=== PATIENT | female | born 1940 | race Caucasian/White ===

== ENCOUNTER 2017-04-28 18:09 | Emergency (ER) | payer MEDICARE, BC ==
[2017-04-28 19:06] VITALS: BP 140/80
[2017-04-28] MEDS ORDERED: ALPRAZolam 0.5 MG Tab PO ONE (19:19)
--- NOTE | 2017-04-28 19:23 | EDM.PDOC ---
ED HPI GENERAL MEDICAL PROBLEM - General Chief Complaint: Headache Stated Complaint: HEADACHE, [id number] Time Seen by Provider: 04/28/17 19:20 Source of Information: Reports: Patient History Limitations: Reports: No Limitations - History of Present Illness INITIAL COMMENTS - FREE TEXT/NARRATIVE: long h/o problem and been Tx with xanax by Dr Orozco who retired and been out of Rx. Headache Pain Score (Numeric/FACES): 6 - Related Data Allergies Allergy/AdvReac Type Severity Reaction Status Date / Time amitriptyline Allergy Abdominal Verified 10/07/16 20:25 Cramps amoxicillin [Amoxicillin] Allergy Diarrhea Verified 10/07/16 20:25 cefadroxil [Cefadroxil] Allergy Cannot Verified 10/07/16 20:25 Remember cefadroxil hydrate Allergy Anaphylactic Verified 10/07/16 20:25 [From Duricef] Shock Cephalosporins Allergy Cannot Verified 10/07/16 20:25 Remember ciprofloxacin Allergy Abdominal Verified 10/07/16 20:25 Pain clindamycin Allergy Diarrhea Verified 10/07/16 20:25 cyclobenzaprine Allergy Cannot Verified 10/07/16 20:25 [Cyclobenzaprine] Remember diazepam [From Valium] Allergy Abdominal Verified 10/07/16 20:25 Pain doxycycline Allergy Diarrhea Verified 10/07/16 20:25 hydrocodone Allergy Cannot Verified 10/07/16 20:25 Remember latex Allergy Rash Verified 10/07/16 20:25 meperidine HCl [From Demerol] Allergy Cannot Verified 10/07/16 20:25 Remember mirtazapine Allergy Cannot Verified 10/07/16 20:25 Remember oxycodone [Oxycodone] Allergy Cannot Verified 10/07/16 20:25 Remember Penicillins Allergy Anaphylactic Verified 10/07/16 20:25 Shock tramadol Allergy Cannot Verified 10/07/16 20:25 Remember venlafaxine Allergy Cannot Verified 10/07/16 20:25 Remember Home Meds: Home Meds Methimazole [Tapazole] 10 mg PO DAILY 02/03/14 [History] Metoprolol Tartrate [Lopressor] 12.5 mg PO Q12HR 02/03/14 [History] Sertraline [Zoloft] 150 mg PO DAILY 02/03/14 [History] Omeprazole [Prilosec] 1 tab PO DAILY 03/13/16 [History] hydrOXYzine Pamoate [Hydroxyzine Pamoate] 1 cap PO BID PRN 10/07/16 [History] Past Medical History HEENT History: Reports: Impaired Vision Cardiovascular History: Reports: Hypertension Respiratory History: Reports: COPD, Pneumonia, Recurrent Gastrointestinal History: Reports: GERD Genitourinary History: Reports: Other (See Below) Other Genitourinary History: botox injection peripheral neuropathy. 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 right wrist Neurological History: Reports: Neuropathy, Peripheral Psychiatric History: Reports: Anxiety, Depression, Panic Attack Endocrine/Metabolic History: Reports: Other (See Below) Other Endocrine/Metabolic History: PT STATES THYROID PROBLEMS Hematologic History: Reports: None Immunologic History: Reports: None Oncologic (Cancer) History: Reports: None Dermatologic History: Reports: None - Infectious Disease History Infectious Disease History: Reports: None - Past Surgical History Head Surgeries/Procedures: Reports: None Social & Family History - Family History Family Medical History: Noncontributory - Tobacco Use Smoking Status *Q: Current Every Day Smoker Years of Tobacco use: 50 Packs/Tins Daily: 0.2 Used Tobacco, but Quit: No Second Hand Smoke Exposure: No - Caffeine Use Caffeine Use: Reports: None - Alcohol Use Days Per Week of Alcohol Use: 0 - Recreational Drug Use Recreational Drug Use: No ED ROS GENERAL - Review of Systems Review Of Systems: ROS reveals no pertinent complaints other than HPI. - Physical Exam Exam: See Below Exam Limited By: No Limitations General Appearance: Alert, WD/WN, Mild Distress, Other (tearful) Eye Exam: Bilateral Eye: PERRL (pupils ER @ 4mm) Ears: Hearing Grossly Normal Throat/Mouth: Normal Voice, No Airway Compromise Head Exam: Atraumatic Neck: Non-Tender, Full Range of Motion Respiratory/Chest: No Respiratory Distress Cardiovascular: Regular Rate, Rhythm GI/Abdominal: Soft, Non-Tender Neuro Exam (Abbreviated): Alert, Oriented, Normal Cognition, Normal Gait, No Motor/Sensory Deficits Psychiatric: Tearful Skin Exam: Warm, Dry Course - Vital Signs Last Recorded V/S: Last Vital Signs Temp 35.7 C 04/28/17 19:05 Pulse 72 04/28/17 19:05 Resp 16 04/28/17 19:05 BP 140/80 05/28/17 19:05 Pulse Ox 98 04/28/17 19:05 - Orders/Labs/Meds Meds: Medications Discontinued Medications Generic Name Dose Route Start Last Admin Trade Name Freq PRN Reason Stop Dose Admin Alprazolam 0.5 mg 04/28/17 19:19 Xanax PO 04/28/17 19:20 ONETIME ONE Departure - Departure Time of Disposition: 19:22 Disposition: Home, Self-Care 01 Condition: good Clinical Impression: Migraine - Discharge Information Instructions: Recurrent Migraine Headache, [id number] Forms: ED Department Discharge Additional Instructions: 1) rest 2) follow up at clinic or recheck as needed rx given; xanax 0.5mg hs prn x 20
== END 2017-04-28 19:36 | disposition home or self-care (01) ==
LOC: DL.ED 18:09
DX: G43.909 Migraine, unspecified, not intractable, without status migrainosus (principal); I10 Essential (primary) hypertension; J44.9 Chronic obstructive pulmonary disease, unspecified; F41.9 Anxiety disorder, unspecified; F32.9 Major depressive disorder, single episode, unspecified; F17.210 Nicotine dependence, cigarettes, uncomplicated; Z88.1 Allergy status to other antibiotic agents; Z88.8 Allergy status to other drugs, medicaments and biological substances; Z88.0 Allergy status to penicillin; Z88.6 Allergy status to analgesic agent; Z79.899 Other long term (current) drug therapy; Z87.01 Personal history of pneumonia (recurrent); K21.9 Gastro-esophageal reflux disease without esophagitis; Z91.040 Latex allergy status
CPT/HCPCS: 99283; A9270

== ENCOUNTER 2017-06-05 21:06 | Emergency (ER) | payer MEDICARE, BC ==
[2017-06-05 22:08] VITALS: BP 155/91
[2017-06-05] MEDS ORDERED: Ketorolac 30 MG/ML SDV IVPUSH ONE (22:14)
[2017-06-05] MEDS ORDERED: Sodium Chloride 0.9% 500 ML IV SCH (22:15)
--- NOTE | 2017-06-05 22:20 | EDM.PDOC ---
ED HPI GENERAL MEDICAL PROBLEM - General Chief Complaint: Headache Stated Complaint: HEADACHE Time Seen by Provider: 06/05/17 22:10 Source of Information: Reports: Patient History Limitations: Reports: No Limitations - History of Present Illness INITIAL COMMENTS - FREE TEXT/NARRATIVE: This 77 yo female patient reports to the ED with a headache that started after a brief episode of vertigo at about 1700 tonight. The patient has taken Tylenol but her pain continues to be a 6/10. Onset: Today Onset Date: 06/05/17 Onset Time: 17:00 Duration: Constant Location: Reports: Head Quality: Reports: Ache Severity: Moderate Improves with: Reports: None Worsens with: Reports: None Context: Reports: Activity Associated Symptoms: Reports: No Other Symptoms Treatments [facility]: Reports: Acetaminophen Frontal Headache Pain Score (Numeric/FACES): 6 - Related Data Allergies Allergy/AdvReac Type Severity Reaction Status Date / Time amitriptyline Allergy Abdominal Verified 10/07/16 20:25 Cramps amoxicillin [Amoxicillin] Allergy Diarrhea Verified 10/07/16 20:25 cefadroxil [Cefadroxil] Allergy Cannot Verified 10/07/16 20:25 Remember cefadroxil hydrate Allergy Anaphylactic Verified 10/07/16 20:25 [From Duricef] Shock Cephalosporins Allergy Cannot Verified 10/07/16 20:25 Remember ciprofloxacin Allergy Abdominal Verified 10/07/16 20:25 Pain clindamycin Allergy Diarrhea Verified 10/07/16 20:25 cyclobenzaprine Allergy Cannot Verified 10/07/16 20:25 [Cyclobenzaprine] Remember diazepam [From Valium] Allergy Abdominal Verified 10/07/16 20:25 Pain doxycycline Allergy Diarrhea Verified 10/07/16 20:25 hydrocodone Allergy Cannot Verified 10/07/16 20:25 Remember latex Allergy Rash Verified 10/07/16 20:25 meperidine HCl [From Demerol] Allergy Cannot Verified 10/07/16 20:25 Remember mirtazapine Allergy Cannot Verified 10/07/16 20:25 Remember oxycodone [Oxycodone] Allergy Cannot Verified 10/07/16 20:25 Remember Penicillins Allergy Anaphylactic Verified 10/07/16 20:25 Shock tramadol Allergy Cannot Verified 10/07/16 20:25 Remember venlafaxine Allergy Cannot Verified 10/07/16 20:25 Remember Home Meds: Home Meds Methimazole [Tapazole] 10 mg PO DAILY 02/03/14 [History] Metoprolol Tartrate [Lopressor] 12.5 mg PO Q12HR 02/03/14 [History] Sertraline [Zoloft] 150 mg PO DAILY 02/03/14 [History] Omeprazole [Prilosec] 1 tab PO DAILY 03/13/16 [History] hydrOXYzine Pamoate [Hydroxyzine Pamoate] 1 cap PO BID PRN 10/07/16 [History] Past Medical History HEENT History: Reports: Impaired Vision Cardiovascular History: Reports: Hypertension Respiratory History: Reports: COPD, Pneumonia, Recurrent Gastrointestinal History: Reports: GERD Genitourinary History: Reports: Other (See Below) Other Genitourinary History: botox injection peripheral neuropathy. 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 right wrist Neurological History: Reports: Neuropathy, Peripheral Psychiatric History: Reports: Anxiety, Depression, Panic Attack Endocrine/Metabolic History: Reports: Other (See Below) Other Endocrine/Metabolic History: PT STATES THYROID PROBLEMS Hematologic History: Reports: None Immunologic History: Reports: None Oncologic (Cancer) History: Reports: None Dermatologic History: Reports: None - Infectious Disease History Infectious Disease History: Reports: None - Past Surgical History Head Surgeries/Procedures: Reports: None Social & Family History - Family History Family Medical History: Noncontributory - Tobacco Use Smoking Status *Q: Current Every Day Smoker Years of Tobacco use: 50 Packs/Tins Daily: 0.2 Used Tobacco, but Quit: No Second Hand Smoke Exposure: No - Caffeine Use Caffeine Use: Reports: None - Alcohol Use Days Per Week of Alcohol Use: 0 - Recreational Drug Use Recreational Drug Use: No ED ROS GENERAL - Review of Systems Review Of Systems: ROS reveals no pertinent complaints other than HPI. - Physical Exam Exam: See Below Exam Limited By: No Limitations General Appearance: Alert, WD/WN, Mild Distress Eye Exam: Bilateral Eye: EOMI, Normal Inspection, PERRL Ears: Normal External Exam, Normal Canal, Hearing Grossly Normal, Normal TMs Nose: Normal Inspection, Normal Mucosa, No Blood Throat/Mouth: Normal Inspection, Normal Lips, Normal Teeth, Normal Gums, Normal Oropharynx, Normal Voice, No Airway Compromise Head Exam: Atraumatic, Normocephalic Neck: Normal Inspection, Supple, Non-Tender, Full Range of Motion Respiratory/Chest: No Respiratory Distress, Lungs Clear, Normal Breath Sounds, No Accessory Muscle Use, Chest Non-Tender Cardiovascular: Normal Peripheral Pulses, Regular Rate, Rhythm, No Edema, No Gallop, No JVD, No Murmur, No Rub GI/Abdominal: Normal Bowel Sounds, Soft, Non-Tender, No Organomegaly, No Distention, No Abnormal Bruit, No Mass (Female) Exam: Deferred Rectal (Female) Exam: Deferred Neuro Exam (Abbreviated): Alert, Oriented, CN II-XII Intact, Normal Cognition, Normal Gait, Normal Reflexes, No Motor/Sensory Deficits Back Exam: Normal Inspection, Full Range of Motion, NT Psychiatric: Normal Affect, Normal Mood Skin Exam: Warm, Dry, Intact, Normal Color, No Rash Course - Vital Signs Last Recorded V/S: Last Vital Signs Temp 37.0 C 06/05/17 22:07 Pulse 65 06/05/17 22:07 Resp 18 06/05/17 22:07 BP 155/91 H 06/05/17 22:07 Pulse Ox 96 06/05/17 22:07 - Orders/Labs/Meds Orders: Active Orders 24 hr Category Date Time Status Sodium Chloride 0.9% [Normal Saline] 500 ml Med 06/05/17 22:15 Active IV .BOLUS Medication Orders Sodium Chloride (Normal Saline) 500 mls @ 999 mls/hr IV .BOLUS SARAHI Last Admin: 06/05/17 22:25 Dose: 999 mls/hr Meds: Medications Generic Name Dose Route Start Last Admin Trade Name Freq PRN Reason Stop Dose Admin Sodium Chloride 500 mls @ 999 mls/hr 06/05/17 22:15 06/05/17 22:25 Normal Saline IV 999 mls/hr .BOLUS SARAHI Administration Discontinued Medications Generic Name Dose Route Start Last Admin Trade Name Freq PRN Reason Stop Dose Admin Ketorolac Tromethamine 30 mg 06/05/17 22:14 06/05/17 22:25 Toradol IVPUSH 06/05/17 22:15 30 mg ONETIME ONE Administration Departure - Departure Time of Disposition: 22:59 Disposition: Home, Self-Care 01 Condition: Fair Clinical Impression: Headache Qualifiers: Headache type: unspecified Headache chronicity pattern: episodic headache Intractability: not intractable Qualified Code(s): R51 - Headache - Discharge Information Instructions: General Headache Without Cause, [id number] Forms: ED Department Discharge Care Plan Goals: The patient was advised of the examination results during the visit. The patient was given IV fluids and IV Toradol while in the ED. The patient was encouraged to take her Xanax when she gets home. If the patient has any additional symptoms or concerns, the patient should follow-up with her primary care facility or return to the ED. - My Orders Last 24 Hours: My Active Orders 06/05/17 22:15 Sodium Chloride 0.9% [Normal Saline] 500 ml IV .BOLUS - Assessment/Plan Last 24 Hours: My Active Orders 06/05/17 22:15 Sodium Chloride 0.9% [Normal Saline] 500 ml IV .BOLUS
== END 2017-06-05 23:15 | disposition home or self-care (01) ==
LOC: DL.ED 21:06
DX: R51 Headache (principal); H54.7 Unspecified visual loss; I10 Essential (primary) hypertension; J44.9 Chronic obstructive pulmonary disease, unspecified; F41.9 Anxiety disorder, unspecified; F32.9 Major depressive disorder, single episode, unspecified; K21.9 Gastro-esophageal reflux disease without esophagitis; G62.9 Polyneuropathy, unspecified; F17.210 Nicotine dependence, cigarettes, uncomplicated; Z88.8 Allergy status to other drugs, medicaments and biological substances; Z88.1 Allergy status to other antibiotic agents; Z79.899 Other long term (current) drug therapy; Z87.01 Personal history of pneumonia (recurrent)
CPT/HCPCS: 99284; J1885; J7040; 96374

== ENCOUNTER 2017-08-27 19:43 | Emergency (ER) | payer MEDICARE, BC ==
[2017-08-27 19:57] VITALS: BP 152/79
--- NOTE | 2017-08-27 21:37 | EDM.PDOC ---
ED HPI GENERAL MEDICAL PROBLEM - General Chief Complaint: Head Injury Stated Complaint: FELL BACKWARDS IS BLEEDING ON NECK/HEAD, [id number] Time Seen by Provider: 08/27/17 20:00 Source of Information: Reports: Patient History Limitations: Reports: No Limitations - History of Present Illness INITIAL COMMENTS - FREE TEXT/NARRATIVE: c/o headache. Unwitnessed fall at home, fell back and hit wooden chair. Denies loss of consciousness, States able to get back up off of floor and sit up in chair, brought to ED when huspband home. Patient sustained numerous falls in past, Also c/o general non specific pain everywhere. Onset: Today Location: Reports: Head, Neck Posterior Head Pain Score (Numeric/FACES): 6 - Related Data Allergies Allergy/AdvReac Type Severity Reaction Status Date / Time amitriptyline Allergy Abdominal Verified 08/27/17 19:52 Cramps amoxicillin [Amoxicillin] Allergy Diarrhea Verified 08/27/17 19:52 cefadroxil [Cefadroxil] Allergy Cannot Verified 08/27/17 19:52 Remember cefadroxil hydrate Allergy Anaphylactic Verified 08/27/17 19:52 [From Duricef] Shock Cephalosporins Allergy Cannot Verified 08/27/17 19:52 Remember ciprofloxacin Allergy Abdominal Verified 08/27/17 19:52 Pain clindamycin Allergy Diarrhea Verified 08/27/17 19:52 cyclobenzaprine Allergy Cannot Verified 08/27/17 19:52 [Cyclobenzaprine] Remember diazepam [From Valium] Allergy Abdominal Verified 08/27/17 19:52 Pain doxycycline Allergy Diarrhea Verified 08/27/17 19:52 hydrocodone Allergy Cannot Verified 08/27/17 19:52 Remember latex Allergy Rash Verified 08/27/17 19:52 meperidine HCl [From Demerol] Allergy Cannot Verified 08/27/17 19:52 Remember mirtazapine Allergy Cannot Verified 08/27/17 19:52 Remember oxycodone [Oxycodone] Allergy Cannot Verified 08/27/17 19:52 Remember Penicillins Allergy Anaphylactic Verified 08/27/17 19:52 Shock tramadol Allergy Cannot Verified 08/27/17 19:52 Remember venlafaxine Allergy Cannot Verified 08/27/17 19:52 Remember Home Meds: Home Meds Metoprolol Tartrate [Lopressor] 12.5 mg PO Q12HR 02/03/14 [History] Sertraline [Zoloft] 150 mg PO DAILY 02/03/14 [History] Omeprazole [Prilosec] 1 tab PO DAILY 03/13/16 [History] ALPRAZolam [Xanax] 0.5 tab PO BID 08/27/17 [History] Past Medical History HEENT History: Reports: Impaired Vision Cardiovascular History: Reports: Hypertension Respiratory History: Reports: COPD, Pneumonia, Recurrent Gastrointestinal History: Reports: GERD Genitourinary History: Reports: Other (See Below) Other Genitourinary History: botox injection peripheral neuropathy. 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 right wrist Neurological History: Reports: Neuropathy, Peripheral Psychiatric History: Reports: Anxiety, Depression, Panic Attack Endocrine/Metabolic History: Reports: Other (See Below) Other Endocrine/Metabolic History: PT STATES THYROID PROBLEMS Hematologic History: Reports: None Immunologic History: Reports: None Oncologic (Cancer) History: Reports: None Dermatologic History: Reports: None - Infectious Disease History Infectious Disease History: Reports: None - Past Surgical History Head Surgeries/Procedures: Reports: None Social & Family History - Family History Family Medical History: Noncontributory - Tobacco Use Smoking Status *Q: Current Every Day Smoker Years of Tobacco use: 60 Packs/Tins Daily: 0.5 Used Tobacco, but Quit: No Second Hand Smoke Exposure: No - Caffeine Use Caffeine Use: Reports: Soda - Alcohol Use Days Per Week of Alcohol Use: 0 - Recreational Drug Use Recreational Drug Use: No ED ROS GENERAL - Review of Systems Review Of Systems: ROS reveals no pertinent complaints other than HPI. ED EXAM, HEAD INJURY - Physical Exam Exam: See Below Exam Limited By: No Limitations General Appearance: Alert, Mild Distress Head: Scalp Lacerations (upper occipitalsmall hematoma with .5cm abrasion no active bleding) Nexus Criteria: Posterior, Midline Cervical Tenderness. No: Focal Neurological Deficit Eyes: Bilateral Eye: EOMI, PERRL Ears: Normal External Exam Nose: Normal Inspection, Normal Mucousa Throat/Mouth: Normal Inspection, Normal Lips, Normal Teeth Neck: Non-Tender, Full Range of Motion Respiratory: No Respiratory Distress, Lungs Clear, Normal Breath Sounds Cardiovascular: Normal Peripheral Pulses, Regular Rate, Rhythm GI/Abdominal Exam: Normal Bowel Sounds, Soft Back Exam: Normal Inspection. No: CVA Tenderness (L), CVA Tenderness (R) Extremities: Normal Inspection, Normal Range of Motion Neurologic: Oriented x 3, Motor Weakness (general) Skin: Warm/Dry, Pallor. No: Ecchymosis - [place] Coma Score Best Eye Response (Lucrecia): (4) Open Spontaneously Best Verbal Response ([place]): (5) Oriented Best Motor Response ([place]): (6) Obeys Commands Lucrecia Total: 15 Course - Vital Signs Last Recorded V/S: Last Vital Signs Temp 97.7 F 08/27/17 19:55 Pulse 73 08/27/17 19:55 Resp 20 08/27/17 19:55 BP 152/79 H 08/27/17 19:55 Pulse Ox 97 08/27/17 19:55 - Orders/Labs/Meds Meds: Medications Discontinued Medications Generic Name Dose Route Start Last Admin Trade Name Levon PRN Reason Stop Dose Admin Acetaminophen 650 mg 08/27/17 22:05 08/27/17 22:11 Tylenol PO 08/27/17 22:06 650 mg NOW ONE Administration Departure - Departure Time of Disposition: 22:05 Disposition: Home, Self-Care 01 Condition: Fair Clinical Impression: Fall at home Qualifiers: Encounter type: subsequent encounter Qualified Code(s): W19.XXXD - Unspecified fall, subsequent encounter Headache Qualifiers: Headache type: unspecified Headache chronicity pattern: episodic headache Intractability: not intractable Qualified Code(s): R51 - Headache - Discharge Information Instructions: Head Injury, Adult, [id number] Referrals: PCP,None [Primary Care Provider] - Forms: ED Department Discharge Additional Instructions: tylenol 650mg every 4 hours as needed head injury instructions ice to back of head follow up in clinic later this week urgent follow up if any change in status
[2017-08-27] MEDS ORDERED: Acetaminophen 325 MG Tab PO ONE (22:05)
== END 2017-08-27 22:25 | disposition home or self-care (01) ==
LOC: DL.ED 19:43
DX: S01.01XA Laceration without foreign body of scalp, initial encounter (principal); I10 Essential (primary) hypertension; J44.9 Chronic obstructive pulmonary disease, unspecified; K21.9 Gastro-esophageal reflux disease without esophagitis; F41.9 Anxiety disorder, unspecified; F32.9 Major depressive disorder, single episode, unspecified; F17.210 Nicotine dependence, cigarettes, uncomplicated; Z88.1 Allergy status to other antibiotic agents; Z88.8 Allergy status to other drugs, medicaments and biological substances; Z88.0 Allergy status to penicillin; Z87.01 Personal history of pneumonia (recurrent); Z88.6 Allergy status to analgesic agent; Z79.899 Other long term (current) drug therapy; W18.00XA Striking against unspecified object with subsequent fall, initial encounter; Z91.81 History of falling
CPT/HCPCS: 70450; 72125; 99283; A9270

== ENCOUNTER 2017-09-29 19:26 | Emergency (ER) | payer MEDICARE, BC ==
[2017-09-29 19:37] VITALS: BP 165/91
--- NOTE | 2017-09-29 19:45 | EDM.PDOC ---
ED HPI GENERAL MEDICAL PROBLEM - General Chief Complaint: Abdominal Pain Stated Complaint: GENERAL Time Seen by Provider: 09/29/17 19:42 Source of Information: Reports: Patient History Limitations: Reports: No Limitations - History of Present Illness INITIAL COMMENTS - FREE TEXT/NARRATIVE: onset low abd pain this am, not going away, did have 2x large poop. Bilateral Lower Abdominal Pain Score (Numeric/FACES): 5 - Related Data Allergies Allergy/AdvReac Type Severity Reaction Status Date / Time amitriptyline Allergy Abdominal Verified 09/29/17 19:38 Cramps amoxicillin [Amoxicillin] Allergy Diarrhea Verified 09/29/17 19:38 cefadroxil [Cefadroxil] Allergy Cannot Verified 09/29/17 19:38 Remember cefadroxil hydrate Allergy Anaphylactic Verified 09/29/17 19:38 [From Duricef] Shock Cephalosporins Allergy Cannot Verified 09/29/17 19:38 Remember ciprofloxacin Allergy Abdominal Verified 09/29/17 19:38 Pain clindamycin Allergy Diarrhea Verified 09/29/17 19:38 cyclobenzaprine Allergy Cannot Verified 09/29/17 19:38 [Cyclobenzaprine] Remember diazepam [From Valium] Allergy Abdominal Verified 09/29/17 19:38 Pain doxycycline Allergy Diarrhea Verified 09/29/17 19:38 hydrocodone Allergy Cannot Verified 09/29/17 19:38 Remember latex Allergy Rash Verified 09/29/17 19:38 meperidine HCl [From Demerol] Allergy Cannot Verified 09/29/17 19:38 Remember mirtazapine Allergy Cannot Verified 09/29/17 19:38 Remember oxycodone [Oxycodone] Allergy Cannot Verified 09/29/17 19:38 Remember Penicillins Allergy Anaphylactic Verified 09/29/17 19:38 Shock tramadol Allergy Cannot Verified 09/29/17 19:38 Remember venlafaxine Allergy Cannot Verified 09/29/17 19:38 Remember Home Meds: Home Meds Metoprolol Tartrate [Lopressor] 12.5 mg PO Q12HR 02/03/14 [History] Sertraline [Zoloft] 150 mg PO DAILY 02/03/14 [History] Omeprazole [Prilosec] 1 tab PO DAILY 03/13/16 [History] ALPRAZolam [Xanax] 0.5 tab PO BID 08/27/17 [History] Past Medical History HEENT History: Reports: Impaired Vision Cardiovascular History: Reports: Hypertension Respiratory History: Reports: COPD, Pneumonia, Recurrent Gastrointestinal History: Reports: GERD Genitourinary History: Reports: Other (See Below) Other Genitourinary History: botox injection peripheral neuropathy. [employer] History: Reports: None, Musculoskeletal History: Reports: Fracture Other Musculoskeletal History: coccyx pain. right wrist Neurological History: Reports: Neuropathy, Peripheral Psychiatric History: Reports: Anxiety, Depression, Panic Attack Endocrine/Metabolic History: Reports: Other (See Below) Other Endocrine/Metabolic History: PT STATES THYROID PROBLEMS Hematologic History: Reports: None Immunologic History: Reports: None Oncologic (Cancer) History: Reports: None Dermatologic History: Reports: None - Infectious Disease History Infectious Disease History: Reports: None - Past Surgical History Head Surgeries/Procedures: Reports: None Social & Family History - Family History Family Medical History: Noncontributory - Tobacco Use Smoking Status *Q: Current Every Day Smoker Years of Tobacco use: 60 Packs/Tins Daily: 0.5 Used Tobacco, but Quit: No Second Hand Smoke Exposure: No - Caffeine Use Caffeine Use: Reports: Soda - Alcohol Use Days Per Week of Alcohol Use: 0 - Recreational Drug Use Recreational Drug Use: No ED ROS GENERAL - Review of Systems Review Of Systems: ROS reveals no pertinent complaints other than HPI. ED EXAM, GI/ABD - Physical Exam Exam: See Below Exam Limited By: No Limitations General Appearance: Alert, WD/WN, No Apparent Distress, Other (pleasant & chatty ) Ears: Hearing Grossly Normal Throat/Mouth: Normal Voice, No Airway Compromise Head: Atraumatic Neck: Non-Tender, Full Range of Motion Respiratory/Chest: No Respiratory Distress Cardiovascular: Regular Rate, Rhythm GI/Abdominal Exam: Soft, Tender, Other (minimal periumb disomcfort). No: Distended, Guarding, Rigid, Rebound Neurological: Alert, Oriented, Normal Cognition, Normal Gait, No Motor/Sensory Deficits Psychiatric: Normal Affect, Normal Mood Skin Exam: Warm, Dry, Normal Color Lymphatic: No Adenopathy Course - Vital Signs Last Recorded V/S: Last Vital Signs Temp 36.4 C 09/29/17 19:30 Pulse 87 09/29/17 19:30 Resp 16 09/29/17 19:30 BP 165/91 H 09/29/17 19:30 Pulse Ox 99 09/29/17 19:30 - Orders/Labs/Meds Orders: Active Orders 24 hr Category Date Time Status KUB [Abdomen 1V Flat] [CR] Urgent Exams 09/29/17 19:36 Taken Labs: Laboratory Tests 09/29/17 09/29/17 Range/Units 19:45 19:45 WBC 5.0 (5.0-10.0) 10^3/uL RBC 4.47 (4.2-5.4) 10^6/uL Hgb 12.7 (12.0-16.0) g/dL Hct 38.1 (37.0-47.0) % MCV 85.2 (80-100) fL MCH 28.4 (27.0-34.0) pg MCHC 33.3 (33.0-35.0) g/dL Plt Count 196 (150-450) 10^3/uL Neut % (Auto) 38.7 L (42.2-75.2) % Lymph % (Auto) 41.8 (20.5-50.1) % Davis % (Auto) 14.9 H (2-8) % Eos % (Auto) 3.6 H (1.0-3.0) % Baso % (Auto) 1.0 (0.0-1.0) % Sodium 143 (135-145) mmol/L Potassium 3.5 L (3.6-5.0) mmol/L Chloride 108 (101-111) mmol/L Carbon Dioxide 24.0 (21.0-31.0) mmol/L Anion Gap 14.5 BUN 14 (7-18) mg/dL Creatinine 0.7 (0.6-1.3) mg/dL Est Cr Clr Drug Dosing 66.75 mL/min Estimated GFR (MDRD) > 60 BUN/Creatinine Ratio 20.00 Glucose 93 (74-105) mg/dL Calcium 9.3 (8.4-10.2) mg/dl Total Bilirubin 0.7 (0.2-1.0) mg/dL AST 22 (10-42) IU/L ALT 14 (10-60) IU/L Alkaline Phosphatase 61 (42-121) IU/L Total Protein 6.4 L (6.7-8.2) g/dl Albumin 3.7 (3.2-5.5) g/dl Globulin 2.7 Albumin/Globulin Ratio 1.37 Amylase 40 (28-100) U/L Lipase 32 (22-51) U/L - Re-Assessments/Exams Free Text/Narrative Re-Assessment/Exam: 09/29/17 20:48 results discussed with pt. Departure - Departure Time of Disposition: 20:48 Disposition: Home, Self-Care 01 Condition: Good Clinical Impression: Constipation by delayed colonic transit Abdominal pain Qualifiers: Abdominal location: lower abdomen, unspecified Qualified Code(s): R10.30 - Lower abdominal pain, unspecified - Discharge Information Instructions: Constipation, Adult, [id number] Forms: ED Department Discharge Additional Instructions: 1) avoid fatty foods and solid foods next 3 to 4 days 2) have prune juice rx togo; [facility] - My Orders Last 24 Hours: My Active Orders 09/29/17 19:36 KUB [Abdomen 1V Flat] [CR] Urgent - Assessment/Plan Last 24 Hours: My Active Orders 09/29/17 19:36 KUB [Abdomen 1V Flat] [CR] Urgent
[2017-09-29 20:24] LABS: CHLORIDE,CL 108 mmol/L (101-111); SODIUM,NA 143 mmol/L (135-145)
[2017-09-29] MEDS ORDERED: Magnesium Citrate Solution 296 ML Bottle ONE (20:49)
== END 2017-09-29 20:55 | disposition home or self-care (01) ==
LOC: DL.ED 19:26
DX: K59.01 Slow transit constipation (principal); F17.210 Nicotine dependence, cigarettes, uncomplicated; I10 Essential (primary) hypertension; K21.9 Gastro-esophageal reflux disease without esophagitis; F32.9 Major depressive disorder, single episode, unspecified; F41.0 Panic disorder [episodic paroxysmal anxiety]; Z79.899 Other long term (current) drug therapy; Z88.0 Allergy status to penicillin; Z88.1 Allergy status to other antibiotic agents; Z88.6 Allergy status to analgesic agent; Z88.5 Allergy status to narcotic agent; Z88.8 Allergy status to other drugs, medicaments and biological substances; Z91.040 Latex allergy status
CPT/HCPCS: 36415; 74000; 80053; 82150; 83690; 85025; 99284; A9270; 99283

== ENCOUNTER 2018-06-08 19:01 | Emergency (ER) | payer MEDICARE, BC | END 2018-06-08 19:15 | disposition left against medical advice (07) | LOC: DL.ED 19:01 | DX: Z53.21 Procedure and treatment not carried out due to patient leaving prior to being seen by health care provider (principal) ==

== ENCOUNTER 2018-06-20 21:15 | Emergency (ER) | payer MEDICARE, BC ==
[2018-06-20 21:25] VITALS: BP 126/88
--- NOTE | 2018-06-20 22:03 | EDM.PDOC ---
ED HPI GENERAL MEDICAL PROBLEM - General Chief Complaint: Abdominal Pain Stated Complaint: BELLY ACHE Time Seen by Provider: 06/20/18 22:01 Source of Information: Reports: Patient History Limitations: Reports: No Limitations - History of Present Illness INITIAL COMMENTS - FREE TEXT/NARRATIVE: c/o abd pain some diarrhoea on-off past few days. Bilateral Abdomen Pain Score (Numeric/FACES): 6 - Related Data Allergies Allergy/AdvReac Type Severity Reaction Status Date / Time amitriptyline Allergy Abdominal Verified 09/29/17 19:38 Cramps amoxicillin [Amoxicillin] Allergy Diarrhea Verified 09/29/17 19:38 cefadroxil [Cefadroxil] Allergy Cannot Verified 09/29/17 19:38 Remember cefadroxil hydrate Allergy Anaphylactic Verified 09/29/17 19:38 [From Duricef] Shock Cephalosporins Allergy Cannot Verified 09/29/17 19:38 Remember ciprofloxacin Allergy Abdominal Verified 09/29/17 19:38 Pain clindamycin Allergy Diarrhea Verified 09/29/17 19:38 cyclobenzaprine Allergy Cannot Verified 09/29/17 19:38 [Cyclobenzaprine] Remember diazepam [From Valium] Allergy Abdominal Verified 09/29/17 19:38 Pain doxycycline Allergy Diarrhea Verified 09/29/17 19:38 hydrocodone Allergy Cannot Verified 09/29/17 19:38 Remember latex Allergy Rash Verified 09/29/17 19:38 meperidine HCl [From Demerol] Allergy Cannot Verified 09/29/17 19:38 Remember mirtazapine Allergy Cannot Verified 09/29/17 19:38 Remember oxycodone [Oxycodone] Allergy Cannot Verified 09/29/17 19:38 Remember Penicillins Allergy Anaphylactic Verified 09/29/17 19:38 Shock tramadol Allergy Cannot Verified 09/29/17 19:38 Remember venlafaxine Allergy Cannot Verified 09/29/17 19:38 Remember Home Meds: Home Meds Metoprolol Tartrate [Lopressor] 12.5 mg PO Q12HR 02/03/14 [History] Sertraline [Zoloft] 150 mg PO DAILY 02/03/14 [History] Omeprazole [Prilosec] 1 tab PO DAILY 03/13/16 [History] ALPRAZolam [Xanax] 0.5 tab PO BID 08/27/17 [History] Past Medical History HEENT History: Reports: Impaired Vision Cardiovascular History: Reports: Hypertension Respiratory History: Reports: COPD, Pneumonia, Recurrent Gastrointestinal History: Reports: GERD Genitourinary History: Reports: Other (See Below) Other Genitourinary History: botox injection peripheral neuropathy. [employer] History: Reports: None, Musculoskeletal History: Reports: Fracture Other Musculoskeletal History: coccyx pain. right wrist Neurological History: Reports: Neuropathy, Peripheral Psychiatric History: Reports: Anxiety, Depression, Panic Attack Endocrine/Metabolic History: Reports: Other (See Below) Other Endocrine/Metabolic History: PT STATES THYROID PROBLEMS Hematologic History: Reports: None Immunologic History: Reports: None Oncologic (Cancer) History: Reports: None Dermatologic History: Reports: None - Infectious Disease History Infectious Disease History: Reports: None - Past Surgical History Head Surgeries/Procedures: Reports: None Social & Family History - Family History Family Medical History: Noncontributory - Tobacco Use Smoking Status *Q: Current Every Day Smoker Years of Tobacco use: 50 Packs/Tins Daily: 0.5 - Caffeine Use Caffeine Use: Reports: Soda - Recreational Drug Use Recreational Drug Use: No ED ROS GENERAL - Review of Systems Review Of Systems: ROS reveals no pertinent complaints other than HPI. ED EXAM, GI/ABD - Physical Exam Exam: See Below Exam Limited By: No Limitations General Appearance: Alert, WD/WN, No Apparent Distress, Anxious Ears: Hearing Grossly Normal Throat/Mouth: Normal Voice, No Airway Compromise Head: Atraumatic Neck: Non-Tender, Full Range of Motion Respiratory/Chest: No Respiratory Distress Cardiovascular: Regular Rate, Rhythm, Other GI/Abdominal Exam: Abnormal Bowel Sounds (BS hyper). No: Distended, Guarding, Rigid, Rebound, Tender Neurological: Alert, Oriented, Normal Cognition, Normal Gait, No Motor/Sensory Deficits Psychiatric: Anxious Skin Exam: Warm, Dry, Normal Color Lymphatic: No Adenopathy Course - Vital Signs Last Recorded V/S: Last Vital Signs Temp 36.6 C 06/20/18 21:23 Pulse 94 06/20/18 21:23 Resp 18 06/20/18 21:23 BP 126/88 06/20/18 21:23 Pulse Ox 98 06/20/18 21:23 - Orders/Labs/Meds Labs: Laboratory Tests 06/20/18 06/20/18 Range/Units 21:38 21:38 WBC 4.5 L (5.0-10.0) 10^3/uL RBC 4.35 (4.2-5.4) 10^6/uL Hgb 12.4 (12.0-16.0) g/dL Hct 36.8 L (37.0-47.0) % MCV 84.6 (80-100) fL MCH 28.5 (27.0-34.0) pg MCHC 33.7 (33.0-35.0) g/dL Plt Count 172 (150-450) 10^3/uL Neut % (Auto) 34.3 L (42.2-75.2) % Lymph % (Auto) 45.5 (20.5-50.1) % [place] % (Auto) 15.5 H (2-8) % Eos % (Auto) 4.0 H (1.0-3.0) % Baso % (Auto) 0.7 (0.0-1.0) % Sodium 140 (135-145) mmol/L Potassium 3.3 L (3.6-5.0) mmol/L Chloride 109 (101-111) mmol/L Carbon Dioxide 26.0 (21.0-31.0) mmol/L Anion Gap 8.3 BUN 16 (7-18) mg/dL Creatinine 0.7 (0.6-1.3) mg/dL Est Cr Clr Drug Dosing 66.75 mL/min Estimated GFR (MDRD) > 60 BUN/Creatinine Ratio 22.85 Glucose 95 (74-105) mg/dL Calcium 8.9 (8.4-10.2) mg/dl Total Bilirubin 0.5 (0.2-1.0) mg/dL AST 19 (10-42) IU/L ALT 12 (10-60) IU/L Alkaline Phosphatase 58 (42-121) IU/L B-Natriuretic Peptide 357 H (0-100) pg/ml Total Protein 6.2 L (6.7-8.2) g/dl Albumin 3.5 (3.2-5.5) g/dl Globulin 2.7 Albumin/Globulin Ratio 1.30 Amylase 37 (28-100) U/L Lipase 31 (22-51) U/L - Re-Assessments/Exams Free Text/Narrative Re-Assessment/Exam: 06/20/18 23:15 results discussed with pt who is feeling better after taking a nap. Departure - Departure Time of Disposition: 23:15 Disposition: Home, Self-Care 01 Condition: Good Clinical Impression: Constipation by delayed colonic transit Abdominal pain Qualifiers: Abdominal location: periumbilical Qualified Code(s): R10.33 - Periumbilical pain - Discharge Information Instructions: Constipation, Adult, [id number] Forms: ED Department Discharge Additional Instructions: 1) try MIRALAX from [employer] 2) continue with micheal higuera, uriel 3) follow up at clinic
[2018-06-20 22:04] LABS: ANION GAP 8.3; CHLORIDE,CL 109 mmol/L (101-111); SODIUM,NA 140 mmol/L (135-145)
== END 2018-06-20 23:24 | disposition home or self-care (01) ==
LOC: DL.ED 21:15
DX: K59.01 Slow transit constipation (principal); F17.210 Nicotine dependence, cigarettes, uncomplicated; I10 Essential (primary) hypertension; J44.9 Chronic obstructive pulmonary disease, unspecified; Z87.01 Personal history of pneumonia (recurrent); Z88.8 Allergy status to other drugs, medicaments and biological substances; Z88.1 Allergy status to other antibiotic agents; Z79.899 Other long term (current) drug therapy
CPT/HCPCS: 36415; 71045; 74018; 80053; 82150; 83690; 83880; 85025; 99284